=== PATIENT | male | born 1990 | race Caucasian/White ===

== ENCOUNTER 2018-09-13 07:26 | Day surgery (SDC) | payer OTHER ==
[~2018-09-13] VITALS: Ht 167.6 cm; Wt 68.8 kg
[2018-09-13 09:02] VITALS: Ht 167.6 cm; Wt 68.8 kg
[2018-09-13 09:31] VITALS: BP 132/80; PULSE 62; RESP 18
[2018-09-13] MEDS ORDERED: LIDOCAINE 4% SOLUTION 50 ML BTL ONE (09:31)
[2018-09-13] MEDS ORDERED: FENTAnyl 50 MCG/ML VIAL ONE (10:13)
[2018-09-13] MEDS ORDERED: MIDAZOLAM 1 MG/ML 2 ML INJ ONE ×2 (10:13)
[2018-09-13 10:25] VITALS: BP 119/68; PULSE 58; RESP 18
== END 2018-09-13 13:50 | disposition home or self-care (01) ==
LOC: GIL 07:26
PROVIDERS: ATTEND Internal Medicine Gastroenterology
DX: K29.00 Acute gastritis without bleeding (principal); K20.8 Other esophagitis
CPT/HCPCS: 43239; 88305; 88312; 88313; J2250; J3010; Z7610